=== PATIENT | male | born 1950 | race Caucasian/White ===

== ENCOUNTER 2017-06-19 14:47 | Outpatient (CLI) | payer OTHER | END 2017-06-19 14:48 | disposition home or self-care (01) | LOC: CTENTCT 14:47 | PROVIDERS: ATTEND Specialist | DX: J32.9 Chronic sinusitis, unspecified (principal) | CPT/HCPCS: 70486 ==

== ENCOUNTER 2022-06-13 13:59 | Outpatient (CLI) | payer OTHER | END 2022-06-13 14:00 | disposition home or self-care (01) | LOC: RAD 13:59 | PROVIDERS: ATTEND Physical Medicine & Rehabilitation | DX: I69.891 Dysphagia following other cerebrovascular disease (principal); R13.10 Dysphagia, unspecified; R63.30 Feeding difficulties, unspecified | CPT/HCPCS: 74230 ==